=== PATIENT | male | born 1975 | race Hispanic/Latino ===

== ENCOUNTER → 2017-06-07 | Outpatient (CLI) | payer OTHER ==
--- NOTE | 2017-06-07 18:41 | Diagnostic Imaging Report ---
CT scan of the RIGHT WRIST, WITHOUT contrast. TECHNIQUE: Standard departmental protocols were used. Sagittal and coronal reformatted images were obtained. PROTOCOL: Routine COMPLICATIONS: None RADIATION DOSE: Total DLP = 107.98 mGy*cm HISTORY: Fall from ladder, wrist strain COMPARISON: None available FINDINGS: Bones: A subtle linear lucency at the volar aspect of the distal radial epiphysis adjacent to the radiocarpal joint (sagittal image 53 and axial image 5). A well-corticated ossification dorsal to the capitate, measuring 0.5 cm (AP) x 1.2 cm (ML) x 0.7 cm (CC). A punctate calcification between the capitate and the adjacent triscaphe joint with adjacent small subchondral capitate cyst. Mild ulnar minus variance. Joints: Mild scattered degenerative changes, most notably the second carpometacarpal joint. Small to moderate patino carpal effusions. Soft tissues: Mild diffuse volar soft tissue edema. IMPRESSION: 1. Questionable nondisplaced fracture at the volar aspect of the distal radial epiphysis, correlate for focal point tenderness. 2. Multiple mild chronic posttraumatic and degenerative changes. Signed by: Dr. Erik Mendoza D.O., M.M.M. on 06/07/2017 6:37 PM
== END ==
LOC: CT 17:31
PROVIDERS: ATTEND Family Medicine
DX: S66.911A Strain of unspecified muscle, fascia and tendon at wrist and hand level, right hand, initial encounter (principal)